=== PATIENT | female | born 1960 | race Caucasian/White ===

== ENCOUNTER 2021-03-31 12:12 | Emergency (ER) | payer OTHER ==
--- OUTSIDE RECORDS SUMMARY | 2021-03-31 12:16 | XMS REPORT | Continuity of Care Document ---
:1960 Author Organization [facility] t Address [address] [place] [address] Care Team Providers Name Role Phone Doctor Unassigned, Name Attending Clinician Unavailable Problems This patient has no known problems. Allergies, Adverse Reactions, Alerts This patient has no known allergies or adverse reactions. Medications This patient has no known medications. Procedures This patient has no known procedures. Encounters Start End Encounter Admission Attending Care Care Encounter Source Date/Time Date/Time Type Type Clinicians Facility Department ID Orders Doctor MARTIN [id number] 00:00:00 00:00:00 Only UnassignedZAID [id number] [place] [facility] [id number] Results This patient has no known results.
--- NOTE | 2021-03-31 15:05 | ER ---
Nurse's Notes [facility] [place] Name: Coral Curry Age: 60 yrs Sex: Female : 1960 Arrival Date: 03/31/2021 Time: 12:13 Bed 12 Private MD: Diagnosis: Person with feared health complaint in whom no diagnosis is made Presentation: 03/31 12:52 Chief complaint: Patient states: "I would like to be test for COVID since my son has kg it, I dont have any symptoms.". Coronavirus screen: Client denies travel out of the [place] in the last 14 days. At this time, unable to obtain information related to travel outside the [place] At this time, the client does not indicate any symptoms associated with coronavirus-19. Ebola Screen: Patient negative for fever greater than or equal to 101.5 degrees Fahrenheit, and additional compatible Ebola Virus Disease symptoms Patient denies exposure to infectious person. Patient denies travel to an Ebola-affected area in the 21 days before illness onset. Initial Sepsis Screen: Does the patient meet any 2 criteria? No. Patient's initial sepsis screen is negative. Does the patient have a suspected source of infection? No. Patient's initial sepsis screen is negative. Risk Assessment: Do you want to hurt yourself or someone else? Patient reports no desire to harm self or others. Onset of symptoms is unknown. 12:52 Method Of Arrival: Ambulatory kg 12:52 Acuity: ARMANDO 5 kg Triage Assessment: 12:58 General: Appears in no apparent distress. Behavior is calm. Pain: Denies pain. kg Respiratory:. Historical: - Allergies: 12:54 No Known Allergies; kg - PMHx: 12:54 Heart murmur; Hypertensive disorder; PTSD- Rapped 1988; kg - Immunization history:: Adult Immunizations up to date, Client reports receiving the 1st dose of the Covid vaccine, February 11, 2021. - Social history:: Smoking status: Patient reports the use of cigarette tobacco products, smokes one-half pack cigarettes per day. Screenin:58 Abuse screen: Denies threats or abuse. Denies injuries from another. Nutritional kg screening: No deficits noted. Tuberculosis screening: No symptoms or risk factors identified. Fall Risk None identified. No fall in past 12 months (0 pts). No secondary diagnosis (0 pts). No IV (0 pts). Ambulatory Aid- None/Bed Rest/Nurse Assist (0 pts). Gait- Normal/Bed Rest/Wheelchair (0 pts) Mental Status- Oriented to own ability (0 pts). Total Felipe Fall Scale indicates No Risk (0-24 pts). Vital Signs: 12:52 BP 137 / 98; Pulse 81; Resp 20; Temp 97.4(TE); Pulse Ox 100% on R/A; Weight 49.94 kg; kg Height 5 ft. 1 in. (154.94 cm); Pain 6/10; 12:52 Body Mass Index 20.80 (49.94 kg, 154.94 cm) kg ED Course: 12:13 Patient arrived in ED. ds1 12:54 Triage completed. kg 12:58 Patient has correct armband on for positive identification. Call light in reach. kg 13:14 Peyton Gutiérrez FNP-C is PHCP. kb 13:14 Cathryn Rodriguez MD is Attending Physician. kb 14:27 Katie Jim, RN is Primary Nurse. iw Administered Medications: No medications were administered Outcome: 15:04 Discharge ordered by . kb 15:15 Patient left the ED. iw Signatures: Peyton Gutiérrez FNP-C FNP-Bri Panchal ds1 Katie Jim, RN RN iw Kathya Bravo RN RN kg
--- NOTE | 2021-03-31 15:05 | EDPHYS ---
Physician Documentation [facility] Name: Coral Curry Age: 60 yrs Sex: Female : 1960 Arrival Date: 03/31/2021 Time: 12:13 Bed 12 Private MD: ED Physician Cathryn Rodriguez HPI: 03/31 14:25 This 60 yrs old Female presents to ER via Ambulatory with complaints of covid kb testing. 14:25 Patient reports her son is positive for Covid. She came in today to be tested to see if kb she has the virus as well. Patient denies any symptoms.. Onset: The symptoms/episode began/occurred today. Severity of symptoms:. The patient has not experienced similar symptoms in the past. The patient has not recently seen a physician. Historical: - Allergies: 12:54 No Known Allergies; kg - PMHx: 12:54 Heart murmur; Hypertensive disorder; PTSD- Rapped 1988; kg - Immunization history:: Adult Immunizations up to date, Client reports receiving the 1st dose of the Covid vaccine, February 11, 2021. - Social history:: Smoking status: Patient reports the use of cigarette tobacco products, smokes one-half pack cigarettes per day. ROS: 14:26 Constitutional: Negative for fever, chills, and weight loss. kb 14:26 All other systems are negative. Exam: 14:26 Constitutional: This is a well developed, well nourished patient who is awake, alert, kb and in no acute distress. ENT: Moist Mucous membranes Respiratory: Respirations even and unlabored. No increased work of breathing, no retractions or nasal flaring. Skin: Warm, dry with normal turgor. Normal color. MS/ Extremity: Pulses equal, no cyanosis. Neurovascular intact. Full, normal range of motion. Neuro: Awake and alert, GCS 15, oriented to person, place, time, and situation. Moves all extremities. Normal gait. Psych: Awake, alert, with orientation to person, place and time. Behavior, mood, and affect are within normal limits. Vital Signs: 12:52 BP 137 / 98; Pulse 81; Resp 20; Temp 97.4(TE); Pulse Ox 100% on R/A; Weight 49.94 kg; kg Height 5 ft. 1 in. (154.94 cm); Pain 6/10; 12:52 Body Mass Index 20.80 (49.94 kg, 154.94 cm) kg MDM: 14:09 Patient medically screened. kb 14:27 Data reviewed: vital signs, nurses notes. Data interpreted: Pulse oximetry: on room air kb is 100 %. Interpretation: normal. Counseling: I had a detailed discussion with the patient and/or guardian regarding: the historical points, exam findings, and any diagnostic results supporting the discharge/admit diagnosis, lab results, the need for outpatient follow up, a family practitioner, to return to the emergency department if symptoms worsen or persist or if there are any questions or concerns that arise at home. 03/31 15:01 Order name: SARS-COV-2 RT PCR; Complete Time: 15:04 EDMS Administered Medications: No medications were administered Disposition Summary: 03/31/21 15:04 Discharge Ordered Location: Home kb Condition: Stable kb Diagnosis - Person with feared health complaint in whom no diagnosis is made kb Followup: kb - With: Emergency Department - When: As needed - Reason: Worsening of condition Followup: kb - With: Private Physician - When: 2 - 3 days - Reason: Recheck today's complaints, Continuance of care, Re-evaluation by your physician Discharge Instructions: - Discharge Summary Sheet kb - COVID-19 kb - COVID-19 Frequently Asked Questions kb Forms: - Medication Reconciliation Form kb - Thank You Letter kb - Antibiotic Education kb - Prescription Opioid Use kb Addendum: 04/02/2021 17:06 Co-signature as Attending Physician, Cathryn Rodriguez MD. m a2 Signatures: Dispatcher [employer] EDPeyton Multani FNP-C FNP-Cathryn Mcclure MD MD ma2 Kathya Bravo, RN RN kg Corrections: (The following items were deleted from the chart) 03/31 14:05 13:08 CORONAVIRUS+.BRZ ordered. EDWA EDMS
[2021-03-31 15:19] VITALS: BP 137/98; TEMP 97.4; O2SAT 100
== END 2021-03-31 15:15 | disposition home or self-care (01) ==
LOC: ER 12:12
DX: Z71.1 Person with feared health complaint in whom no diagnosis is made (principal)
CPT/HCPCS: 99281; U0003